=== PATIENT | female | born 1975 | race Caucasian/White ===

== ENCOUNTER 2024-12-17 11:29 | Outpatient (REF) | payer BC, SELFPAY ==
[2024-12-17 11:19] LABS: Abs Immature Grans 0.11 10^3/uL (0.0-0.06); HCT 32.3 % (36.0-46.0); HGB 11.2 g/dL (11.2-15.7); Immature Grans % 3.4 %; MCH 31.5 pg (27.0-33.0); MCHC 34.7 % (32.0-36.0); MCV 91 fL (80-95); MPV 8.7 fL (8.0-11.0); Platelet Count 113 10^3/uL (130-400); RBC 3.55 10^6/uL (3.93-5.22); RDW 18.2 % (11.7-14.6); RDW-SD 58.9 fL; WBC 3.28 10^3/uL (4.4-10.8)
[2024-12-17 11:49] LABS: ALT 32 U/L (14-59); AST 21 U/L (15-37); Albumin 3.3 g/dL (3.4-5.0); Alkaline Phosphatase 150 U/L (46-116); Anion Gap 6.6 mmol/L (3-11); BUN 16 mg/dL (7-18); Bilirubin, Total 0.2 mg/dL (0.2-1.0); CO2 29.4 mmol/L (21.0-32.0); Calcium 9.9 mg/dL (8.5-10.1); Chloride 105 mmol/L (98-107); Estimated GFR 69.06 (mL/min/1.73m2); Glucose 97 mg/dL (74-106); Potassium 3.8 mmol/L (3.5-5.1); Sodium 141 mmol/L (136-145); Total Protein 6.5 g/dL (6.4-8.2)
[2024-12-17 18:11] LABS: CEA 35.6 ng/mL (See Note)
== END 2024-12-17 11:30 | disposition home or self-care (01) ==
LOC: LBN 11:29
PROVIDERS: Visit Provider Internal Medicine Hematology & Oncology
DX: C18.9 Malignant neoplasm of colon, unspecified (principal); C78.7 Secondary malignant neoplasm of liver and intrahepatic bile duct
CPT/HCPCS: 80053; 82378; 85025